=== PATIENT | male | born 1955 | race Caucasian/White ===

== ENCOUNTER 2022-04-28 07:45 | Inpatient (IN) | payer MEDICARE, OTHER ==
[~2022-04-28] VITALS: Ht 157.5 cm; Wt 51.1 kg
[2022-04-28] MEDS ORDERED: ACETAMINOPHEN 325 MG TAB PO ONE (11:30)
[2022-04-28 11:42] LABS: Urine Bacteria MOD /hpf (None Seen); Urine Blood 3+ /uL (Negative); Urine Specific Gravity 1.031 (1.001-1.035); Urine WBC 11 /hpf (0 - 3)
[2022-04-28] MEDS ORDERED: cefTRIAXone 1GM/50ML D5W 50 ML IV ONE (13:30)
[2022-04-28 13:56] LABS: Basophils # (auto) 0.2 10 ^3/uL (0-0.2); Eosinophils # (auto) 0.1 10 ^3/uL (0-0.8); Monocytes # (auto) 0.6 10 ^3/uL (0-1.3)
[2022-04-28 13:58] LABS: Basophils % (auto) 1.1 % (0.0-2.0); Eosinophils % (auto) 0.6 % (0.0-7.0); Hematocrit 41.2 % (41.0-53.0); Hemoglobin 13.8 g/dL (13.5-17.5); Lymphocytes # (auto) 1.1 10 ^3/uL (0.4-5.4); Lymphocytes % (auto) 5.8 % (10.0-50.0); Mean Corpuscular Hemoglobin 29.9 pg (28.0-32.0); Mean Corpuscular Hgb Conc. 33.6 g/dL (32.0-36.0); Mean Corpuscular Volume 89.2 fL (80.0-100.0); Monocytes % (auto) 3.3 % (0.0-12.0); Neutrophils % (auto) 89.2 % (37.0-80.0); Nucleated Red Blood Cells % 0.1 %; Red Blood Cells 4.62 10^6/uL (4.5-5.90); Red Cell Distribution Width 14.6 % (11.8-14.3)
[2022-04-28 14:09] LABS: Albumin 3.2 g/dL (3.4-5.0); Calcium 8.7 mg/dL (8.5-10.1); Potassium 4.1 mmol/L (3.5-5.1)
[2022-04-28 14:13] LABS: BUN/Creatinine Ratio 25.6; Bilirubin, Total 0.6 mg/dL (0.2-1.0); Total Protein 6.9 g/dL (6.4-8.2)
[2022-04-28] MEDS ORDERED: ATOR20TA50 PO (14:59)
[2022-04-28] MEDS ORDERED: AMLO-483 PO (14:59)
[2022-04-28] MEDS ORDERED: MET25T PO (14:59)
[2022-04-28] MEDS ORDERED: TAMS0.4C36 PO (14:59)
[2022-04-28] MEDS ORDERED: RISP0.2535 PO (14:59)
[2022-04-28] MEDS ORDERED: LACTULOSE 20Gm/30ML SOLN PO ONE (15:00)
[2022-04-28] MEDS ORDERED: DEXTROSE (50%) 50ML SYRG IV PRN (15:00)
[2022-04-28] MEDS ORDERED: MORPHINE SULFATE INJ 2 MG/ml SYRG IV PRN ×2 (15:00)
[2022-04-28] MEDS ORDERED: NITROGLYCERIN 0.4 MG SL TAB SL PRN (15:00)
[2022-04-28] MEDS ORDERED: DOCUSATE SOD 100 MG CAP PO PRN (15:00)
[2022-04-28] MEDS: PIPERACILLIN-TAZOB 3.375GM 100 ML IV SCH ×2 (15:42→22:34)
[2022-04-28] MEDS: SODIUM CHLORIDE 0.9% 1,000 ML IV SCH (15:43)
[2022-04-28] MEDS: ACCU-CHEK COMFORT CURVE STRIP VI SCH ×2 (17:11→22:15)
[2022-04-28] MEDS: InsuLIN REG 1unit/0.01ml Soln (100units/ml) SC SCH ×2 (17:15→22:38)
[2022-04-28] MEDS: ACETAMINOPHEN 325 MG TAB PO PRN (17:16)
[2022-04-28] MEDS: ONDANSETRON HCL 4 MG/2 ML VIAL IV PRN (20:23)
[2022-04-28] MEDS: METOPROLOL TARTRATE 25 MG TAB PO SCH (22:00)
[2022-04-28 23:37] VITALS: BP 89/60
[2022-04-29] MEDS: ACETAMINOPHEN 325 MG TAB PO PRN ×4 (00:05→23:17)
[2022-04-29 05:00] VITALS: BP 84/59
[2022-04-29] MEDS: ACCU-CHEK COMFORT CURVE STRIP VI SCH ×4 (06:38→21:12)
[2022-04-29] MEDS: PIPERACILLIN-TAZOB 3.375GM 100 ML IV SCH ×3 (06:38→21:00)
[2022-04-29] MEDS: InsuLIN REG 1unit/0.01ml Soln (100units/ml) SC SCH ×4 (06:38→21:12)
[2022-04-29] MEDS: SODIUM CHLORIDE 0.9% 1,000 ML IV SCH ×2 (07:52→08:52)
[2022-04-29 09:00] VITALS: BP_SYST 97; BP_SYST 98; BP_DIAS 52; BP_DIAS 60
[2022-04-29] MEDS: TAMSULOSIN HYDROCHLORIDE 0.4 MG CAP PO SCH ×2 (09:42→10:00)
[2022-04-29] MEDS: METOPROLOL TARTRATE 25 MG TAB PO SCH ×2 (09:42→21:00)
[2022-04-29] MEDS: ATORVASTATIN 20 MG TAB PO SCH ×2 (09:42→10:00)
[2022-04-29] MEDS ORDERED: amLODIPine BESYLATE 5 MG TAB PO SCH (10:00)
[2022-04-29 13:00] VITALS: BP 97/52
[2022-04-29 17:00] VITALS: BP 114/64
[2022-04-29 22:00] VITALS: BP 86/47
[2022-04-30 05:00] VITALS: BP 95/48
[2022-04-30] MEDS: PIPERACILLIN-TAZOB 3.375GM 100 ML IV SCH ×3 (06:00→22:47)
[2022-04-30] MEDS: InsuLIN REG 1unit/0.01ml Soln (100units/ml) SC SCH ×4 (06:00→22:00)
[2022-04-30] MEDS: ACCU-CHEK COMFORT CURVE STRIP VI SCH ×4 (06:00→22:00)
[2022-04-30] MEDS: ACETAMINOPHEN 325 MG TAB PO PRN ×3 (07:01→20:52)
[2022-04-30 08:00] VITALS: BP 101/41
[2022-04-30] MEDS: TAMSULOSIN HYDROCHLORIDE 0.4 MG CAP PO SCH (09:21)
[2022-04-30] MEDS: METOPROLOL TARTRATE 25 MG TAB PO SCH ×2 (09:21→22:00)
[2022-04-30] MEDS: ATORVASTATIN 20 MG TAB PO SCH (09:21)
[2022-04-30 12:00] VITALS: BP 98/49
[2022-04-30 13:58] LABS: Calcium 8.4 mg/dL (8.5-10.1); Magnesium 2.4 mg/dL (1.6-2.6); Potassium 3.8 mmol/L (3.5-5.1)
[2022-04-30 14:01] LABS: Basophils # (auto) 0.1 10 ^3/uL (0-0.2); Eosinophils # (auto) 0.1 10 ^3/uL (0-0.8); Hematocrit 31.6 % (41.0-53.0); Hemoglobin 10.4 g/dL (13.5-17.5); Lymphocytes # (auto) 1.4 10 ^3/uL (0.4-5.4); Mean Corpuscular Hemoglobin 29.8 pg (28.0-32.0); Mean Corpuscular Volume 90.2 fL (80.0-100.0); Monocytes # (auto) 0.3 10 ^3/uL (0-1.3); Monocytes % (auto) 2.1 % (0.0-12.0); Neutrophils # (auto) 12.1 10 ^3/uL (1.6-8.6); Neutrophils % (auto) 85.9 % (37.0-80.0); Red Cell Distribution Width 14.9 % (11.8-14.3); White Blood Cell 14.1 10^3/uL (4.4-10.8)
[2022-04-30 14:02] LABS: BUN/Creatinine Ratio 29.5; Bilirubin, Total 0.4 mg/dL (0.2-1.0); Phosphorus 2.2 mg/dL (2.5-4.90); Total Protein 6.1 g/dL (6.4-8.2)
[2022-04-30 16:00] VITALS: BP 91/54
[2022-04-30] MEDS: SODIUM CHLORIDE 0.9% 1,000 ML IV SCH (17:00)
[2022-04-30] MEDS ORDERED: Ensure Enlive Chocolate 8oz Bottle PO SCH (18:00)
[2022-04-30] MEDS: Glucerna Carbsteady SHAKE Stawberry 8oz PO SCH (18:00)
[2022-04-30 20:00] VITALS: BP 101/41
[2022-04-30 22:00] VITALS: BP 83/47
[2022-05-01 05:00] VITALS: BP 97/54
[2022-05-01] MEDS: InsuLIN REG 1unit/0.01ml Soln (100units/ml) SC SCH ×4 (06:05→21:18)
[2022-05-01] MEDS: PIPERACILLIN-TAZOB 3.375GM 100 ML IV SCH ×3 (06:05→21:10)
[2022-05-01] MEDS: ACCU-CHEK COMFORT CURVE STRIP VI SCH ×4 (06:06→21:18)
[2022-05-01 08:00] VITALS: BP 96/50
[2022-05-01] MEDS: Glucerna Carbsteady SHAKE Stawberry 8oz PO SCH ×3 (08:00→17:49)
[2022-05-01] MEDS: METOPROLOL TARTRATE 25 MG TAB PO SCH ×2 (10:00→22:00)
[2022-05-01] MEDS: ATORVASTATIN 20 MG TAB PO SCH (10:02)
[2022-05-01] MEDS: TAMSULOSIN HYDROCHLORIDE 0.4 MG CAP PO SCH (10:02)
[2022-05-01] MEDS: SODIUM CHLORIDE 0.9% 1,000 ML IV SCH (13:30)
[2022-05-01 16:00] VITALS: BP 95/45
[2022-05-01] MEDS: ACETAMINOPHEN 325 MG TAB PO PRN (18:40)
[2022-05-01 22:00] VITALS: BP 85/48
[2022-05-02] MEDS: SODIUM CHLORIDE 0.9% 1,000 ML IV SCH ×2 (02:20→19:24)
[2022-05-02 04:42] VITALS: BP 102/57
[2022-05-02] MEDS: PIPERACILLIN-TAZOB 3.375GM 100 ML IV SCH ×3 (06:12→21:06)
[2022-05-02] MEDS: ACCU-CHEK COMFORT CURVE STRIP VI SCH ×4 (06:12→21:06)
[2022-05-02] MEDS: InsuLIN REG 1unit/0.01ml Soln (100units/ml) SC SCH ×4 (06:20→22:00)
[2022-05-02] MEDS: Glucerna Carbsteady SHAKE Stawberry 8oz PO SCH ×3 (08:00→17:46)
[2022-05-02 09:00] VITALS: BP 80/39
[2022-05-02] MEDS: TAMSULOSIN HYDROCHLORIDE 0.4 MG CAP PO SCH (09:40)
[2022-05-02] MEDS: ATORVASTATIN 20 MG TAB PO SCH (09:40)
[2022-05-02] MEDS: METOPROLOL TARTRATE 25 MG TAB PO SCH ×2 (09:41→22:00)
[2022-05-02 11:08] LABS: Basophils # (auto) 0.1 10 ^3/uL (0-0.2); Eosinophils # (auto) 0.4 10 ^3/uL (0-0.8); Eosinophils % (auto) 3.4 % (0.0-7.0); Hematocrit 26.9 % (41.0-53.0); Hemoglobin 9.1 g/dL (13.5-17.5); Lymphocytes # (auto) 1.5 10 ^3/uL (0.4-5.4); Lymphocytes % (auto) 13.5 % (10.0-50.0); Mean Corpuscular Hemoglobin 30.7 pg (28.0-32.0); Mean Corpuscular Volume 90.2 fL (80.0-100.0); Monocytes # (auto) 0.4 10 ^3/uL (0-1.3); Monocytes % (auto) 3.9 % (0.0-12.0); Neutrophils # (auto) 8.4 10 ^3/uL (1.6-8.6); Neutrophils % (auto) 78.2 % (37.0-80.0); Red Blood Cells 2.98 10^6/uL (4.5-5.90); Red Cell Distribution Width 14.7 % (11.8-14.3); White Blood Cell 10.8 10^3/uL (4.4-10.8)
[2022-05-02 11:34] LABS: Albumin 2.7 g/dL (3.4-5.0); Magnesium 2.4 mg/dL (1.6-2.6); Potassium 3.5 mmol/L (3.5-5.1)
[2022-05-02 11:37] LABS: BUN/Creatinine Ratio 13.2; Bilirubin, Total 0.2 mg/dL (0.2-1.0); Total Protein 5.8 g/dL (6.4-8.2)
[2022-05-02 13:00] VITALS: BP 87/52
[2022-05-02 17:00] VITALS: BP 89/57
[2022-05-02] MEDS: ACETAMINOPHEN 325 MG TAB PO PRN ×2 (17:48→23:42)
[2022-05-02 22:00] VITALS: BP 99/45
[2022-05-03 05:00] VITALS: BP 95/56
[2022-05-03] MEDS: ACCU-CHEK COMFORT CURVE STRIP VI SCH (06:14)
[2022-05-03] MEDS: PIPERACILLIN-TAZOB 3.375GM 100 ML IV SCH ×3 (06:20→22:00)
[2022-05-03] MEDS: InsuLIN REG 1unit/0.01ml Soln (100units/ml) SC SCH (06:37)
[2022-05-03 07:37] VITALS: BP 99/43
[2022-05-03] MEDS: Glucerna Carbsteady SHAKE Stawberry 8oz PO SCH ×3 (08:00→18:44)
[2022-05-03 09:00] VITALS: BP 104/57
[2022-05-03] MEDS: METOPROLOL TARTRATE 25 MG TAB PO SCH ×2 (10:00→22:00)
[2022-05-03] MEDS: TAMSULOSIN HYDROCHLORIDE 0.4 MG CAP PO SCH (10:11)
[2022-05-03] MEDS: ATORVASTATIN 20 MG TAB PO SCH (10:11)
[2022-05-03] MEDS: SODIUM CHLORIDE 0.9% 1,000 ML IV SCH (11:40)
[2022-05-03 13:00] VITALS: BP 99/43
[2022-05-03 17:00] VITALS: BP 96/59
[2022-05-03] MEDS: ACETAMINOPHEN 325 MG TAB PO PRN (19:37)
[2022-05-03 20:00] VITALS: BP 83/57
[2022-05-04] MEDS: ACETAMINOPHEN 325 MG TAB PO PRN ×2 (02:00→21:44)
[2022-05-04] MEDS: SODIUM CHLORIDE 0.9% 1,000 ML IV SCH ×2 (04:20→21:00)
[2022-05-04 05:00] VITALS: BP 114/80
[2022-05-04] MEDS: PIPERACILLIN-TAZOB 3.375GM 100 ML IV SCH ×3 (07:29→21:44)
[2022-05-04 07:37] VITALS: BP 124/69
[2022-05-04] MEDS: Glucerna Carbsteady SHAKE Stawberry 8oz PO SCH ×3 (08:00→18:37)
[2022-05-04 09:00] VITALS: BP 124/69
[2022-05-04] MEDS: METOPROLOL TARTRATE 25 MG TAB PO SCH ×2 (10:00→21:45)
[2022-05-04] MEDS: ATORVASTATIN 20 MG TAB PO SCH (10:00)
[2022-05-04] MEDS: TAMSULOSIN HYDROCHLORIDE 0.4 MG CAP PO SCH (10:00)
[2022-05-04] MEDS ORDERED: RISP0.2535 PO (12:38)
[2022-05-04 13:00] VITALS: BP 115/62
[2022-05-04 17:00] VITALS: BP 119/53
[2022-05-04] MEDS: ONDANSETRON HCL 4 MG/2 ML VIAL IV PRN (17:28)
[2022-05-04] MEDS: RISPERIDONE 0.5 MG PO SCH (21:44)
[2022-05-04 22:00] VITALS: BP 105/59
[2022-05-05] MEDS: ONDANSETRON HCL 4 MG/2 ML VIAL IV PRN (00:58)
[2022-05-05 05:00] VITALS: BP 111/63
[2022-05-05] MEDS: PIPERACILLIN-TAZOB 3.375GM 100 ML IV SCH (05:32)
[2022-05-05 09:00] VITALS: BP 103/58
[2022-05-05] MEDS: Glucerna Carbsteady SHAKE Stawberry 8oz PO SCH ×3 (09:15→18:00)
[2022-05-05] MEDS: METOPROLOL TARTRATE 25 MG TAB PO SCH ×2 (10:00→21:47)
[2022-05-05] MEDS: TAMSULOSIN HYDROCHLORIDE 0.4 MG CAP PO SCH (10:00)
[2022-05-05] MEDS: RISPERIDONE 0.25 MG PO SCH (10:00)
[2022-05-05] MEDS: ATORVASTATIN 20 MG TAB PO SCH (10:00)
[2022-05-05] MEDS ORDERED: cefTRIAXone 1GM/50ML D5W 50 ML IV ONE (12:00)
[2022-05-05 13:00] VITALS: BP 104/59
[2022-05-05] MEDS: SODIUM CHLORIDE 0.9% 1,000 ML IV SCH (14:21)
[2022-05-05] MEDS: ACETAMINOPHEN 325 MG TAB PO PRN ×2 (14:22→23:00)
[2022-05-05 17:00] VITALS: BP 99/53
[2022-05-05] MEDS: RISPERIDONE 0.5 MG PO SCH (21:47)
[2022-05-06 00:45] VITALS: BP 96/46
[2022-05-06] MEDS: SODIUM CHLORIDE 0.9% 1,000 ML IV SCH (06:30)
[2022-05-06] MEDS: ACETAMINOPHEN 325 MG TAB PO PRN ×2 (06:51→14:27)
[2022-05-06 09:00] VITALS: BP 125/70
[2022-05-06] MEDS ORDERED: cefTRIAXone 1GM/50ML D5W 50 ML IV SCH (09:00)
[2022-05-06] MEDS: TAMSULOSIN HYDROCHLORIDE 0.4 MG CAP PO SCH (09:44)
[2022-05-06] MEDS: METOPROLOL TARTRATE 25 MG TAB PO SCH (09:47)
[2022-05-06] MEDS: Glucerna Carbsteady SHAKE Stawberry 8oz PO SCH ×3 (09:52→18:36)
[2022-05-06] MEDS: ATORVASTATIN 20 MG TAB PO SCH (09:54)
[2022-05-06] MEDS: RISPERIDONE 0.25 MG PO SCH (09:58)
[2022-05-06 14:00] VITALS: BP 106/63
[2022-05-06 17:00] VITALS: BP 102/50
== END 2022-05-06 20:11 | DRG 872 ==
LOC: ER 07:45 → EDBD 07:45 → TELE 14:53 → TELE-EAST 23:39 → EAST 05-04 08:44
PROVIDERS: ADMIT Nurse Practitioner; ATTEND Nurse Practitioner
DX: A41.9 Sepsis, unspecified organism (principal); E44.0 Moderate protein-calorie malnutrition; N30.01 Acute cystitis with hematuria; Z68.1 Body mass index [BMI] 19.9 or less, adult; D49.4 Neoplasm of unspecified behavior of bladder; Z20.822 Contact with and (suspected) exposure to COVID-19; E11.649 Type 2 diabetes mellitus with hypoglycemia without coma; K59.00 Constipation, unspecified; I10 Essential (primary) hypertension; J44.9 Chronic obstructive pulmonary disease, unspecified; N32.9 Bladder disorder, unspecified; Z86.73 Personal history of transient ischemic attack (TIA), and cerebral infarction without residual deficits
CPT/HCPCS: 36415; 71045; 74176; 80053; 80061; 81001; 82962; 83036; 83690; 83735; 83880; 84100; 84484; 85025; 87045; 87086; 87427; 87493; 93005; 96365; 96375; G0378; J0696; J1815; J2405; J2543